=== PATIENT | female | born 1985 | race Caucasian/White ===

== ENCOUNTER 2017-03-18 06:28 | Inpatient (IN) | payer BC ==
[2017-03-16 12:00] LABS: BASOPHILS 0.5 % (0-2); EOSINOPHILS 1.9 % (0-7); HEMATOCRIT 37.4 % (36.0-48.0); HEMOGLOBIN 11.8 g/dL (12-16); IMMATURE GRANULOCYTES 0.2 % (0-5); LYMPHOCYTES 32.3 % (15-50); MCH 24.8 pg (26.0-34.0); MCHC 31.6 g/dL (31.0-37.0); MCV 78.7 fL (80.0-100.0); MEAN PLATELET VOLUME 8.8 fL (7.4-10.4); MONOCYTES 7.4 % (2-11); NEUTROPHILS 57.7 % (40-80); PLATELET COUNT 415 10x3/uL (130-400); RBC 4.75 10x6/uL (4.00-5.40); RDW 13.3 % (11.5-14.5); WBC 8.3 10x3/uL (4.8-10.8)
[2017-03-16 12:24] LABS: CALC OSMOLALITY 278 mosm/kg (275-300); CALCIUM 8.8 mg/dL (8.5-10.1); CARBON DIOXIDE 27.5 mmol/L (21.0-32.0); CHLORIDE - SERUM 106 mmol/L (98-107); CREATININE - SERUM 0.8 mg/dL (0.6-1.3); GLUCOSE 99 mg/dL (74-106); POTASSIUM - SERUM 3.9 mmol/L (3.5-5.1); SODIUM 141 mmol/L (136-145); UREA NITROGEN 6 mg/dL (7-18); eGFR NON AFRICAN AMERICAN 88 mL/min (90-120)
[~2017-03-18] VITALS: Ht 165.1 cm; Wt 106.4 kg
[2017-03-18] VITALS (13 sets, daily range): BP systolic 103–143; BP diastolic 56–82; Ht 165.1 cm; Wt 106.4 kg
[2017-03-18 06:14] LABS: HCG URINE NEGATIVE (NEGATIVE)
--- NOTE | 2017-03-18 10:19 | HP ---
PATIENT: CECIL RUDD MEDICAL RECORD: [id number] ACCOUNT: [id number] LOCATION:[facility] : 84 ADMISSION DATE: 03/18/17 HISTORY AND PHYSICAL EXAMINATION HISTORY OF PRESENT ILLNESS: This patient is a 31-year-old 3, para 3 white female with history of severe menorrhagia and dysmenorrhea precluding normal activities. She has a benign endometrial biopsy and ultrasound revealing a 10-cm uterus, normal-appearing ovaries and normal Pap smear. She has undergone an extensive workup including biopsy of the endometrium, cervical culture, CBC, clotting studies, and TSH. She desires hysterectomy for relief of symptoms. MEDICAL HISTORY: DRUG ALLERGIES: PENICILLIN. CURRENT MEDICATIONS: None. PREVIOUS SURGERIES: Tubal ligation, appendectomy and laparoscopy. FAMILY HISTORY: Noncontributory. REVIEW OF SYSTEMS: No chest pain, no dyspnea. Positive for very heavy menstrual cycles interfering with work and activities, very painful menstrual cycles. PHYSICAL EXAMINATION: VITAL SIGNS: Weight 234. BMI of 38.9, blood pressure 110/74. HEENT: Unremarkable. LUNGS: Clear. HEART: Regular rate and rhythm. ABDOMEN: Soft, nontender. Laparoscopic incisions are well healed. PELVIC: Current and deferred for anesthesia. EXTREMITIES: No cyanosis, clubbing or edema. NEUROLOGIC: Grossly intact. IMPRESSION: Moderately enlarged uterus, severe menorrhagia and dysmenorrhea. The patient desires hysterectomy. PLAN: Laparoscopically-assisted vaginal hysterectomy if possible. She understands the possibility of a total abdominal hysterectomy. She also understands the possibility of a bilateral salpingo-oophorectomy depending on findings at the time of surgery. I have answered all her questions and further discussed risks of surgery which include anesthesia, infection, bleeding and possibility of injury to other organs. Procedure is planned for March 18. TRANSINT:[id number] Voice Confirmation ID: [id number] DOCUMENT ID: [id number] HISTORY AND PHYSICAL [id number] CECIL RUDD BRENDA MD at 1019 CC: [id number] DICTATION DATE: 03/16/17 1714 [facility] ADMISSIONS COUNSELOR: 03/16/[address] [place], [place] [address] [place] [address]
[2017-03-19 00:05] VITALS: BP 128/75
[2017-03-19 04:52] VITALS: BP 118/68
[2017-03-19 07:30] VITALS: BP 112/68
[2017-03-19 07:32] LABS: HEMATOCRIT 30.7 % (36.0-48.0); HEMOGLOBIN 9.3 g/dL (12-16); MCH 24.3 pg (26.0-34.0); MCHC 30.3 g/dL (31.0-37.0); MCV 80.2 fL (80.0-100.0); MEAN PLATELET VOLUME 8.5 fL (7.4-10.4); RBC 3.83 10x6/uL (4.00-5.40); RDW 13.4 % (11.5-14.5)
--- NOTE | 2017-03-19 07:34 | OP ---
PATIENT NAME: CECIL RUDD MEDICAL RECORD: [id number] :84 LOCATION:[facility].1214 ADMISSION DATE:03/18/17 SURGEON: ISI GOMEZ MD DATE OF OPERATION: 03/18/2017 PREOPERATIVE DIAGNOSES: Severe menorrhagia, dysmenorrhea and myoma. POSTOPERATIVE DIAGNOSES: Severe menorrhagia, dysmenorrhea and myoma. PROCEDURES: Examination under anesthesia, total abdominal hysterectomy and bilateral salpingectomy. SURGEON: Isi Gomez MD. ANESTHESIA: General. FINDINGS: A 10-week size uterus with normal ovaries and tubes, status post ligation with Filshie clips. ESTIMATED BLOOD LOSS: 400 cc. COMPLICATIONS OF SURGERY: None. OPERATIVE NOTE: The patient was taken to the OR and under adequate general anesthesia, prepped and draped in the usual manner for abdominal procedures. The patient had undergone an examination under anesthesia, which revealed difficulty by vaginal or laparoscopic approach, an abdominal procedure was begun. After prepping and draping, a transverse incision was made in the lower abdomen that extended in a Pfannenstiel manner through subcutaneous tissue, fascia, dividing muscles in the midline. Peritoneum was then elevated and incised from the symphysis pubis to within 4 cm of the umbilicus, avoiding the bladder and abdominal organs. The round ligaments were identified on the right and left and ligated using #1 chromic sutures. The uteroovarian ligaments and fallopian tubes were then ligated using Duong clamps and #1 chromic sutures. A bladder flap was developed anteriorly using Metzenbaum scissors and blunt dissection. The uterine vessels were then ligated on the right and left using Duong clamps and #1 chromic suture. At this time, the uterine fundus was amputated from the uterine cervix in order to allow better access to the cervix. The cervix was then progressively ligated after clamping vessels on the right and left using #1 chromic suture. Vaginal angles were then clamped and the cervix excised. Vaginal apex closed with interrupted [id number] #1 chromic suture. Pelvis was copiously irrigated and suctioned. The tubes were then addressed and carefully dissected away from the ovaries and sent along with specimen. The pelvis was copiously irrigated and suctioned and hemostasis confirmed. Chester was applied to the vaginal apex. The fascial layer was then closed using a running noninterlocking #1 PDS loop suture. Skin incision reapproximated in 2 layers, first layer a running 2-0 plain gut suture and skin layer a subcuticular 2-0 plain gut suture. THE PATIENT IS ALLERGIC TO THE USUAL STERI-STRIP DRESSING; 4 x 4 gauze and ABD pad were placed across the incision and cloth tape was used to hold in position. The patient then went to the recovery area in good condition. Indigo carmine had been injected transvenously earlier in the case. There was no evidence of spillage into the peritoneal cavity. TRANSINT:[id number] Voice Confirmation ID: [id number] DOCUMENT ID: [id number] OPERATIVE REPORT [id number] CECIL RUDD BRENDA MD at 0734 CC: [id number] DICTATION DATE: 03/18/17 1034 SPRINKLER DRIVER: 03/18/17 1740 ADM IN [facility] [address] [id number]
[2017-03-19 19:10] VITALS: BP 129/72
[2017-03-20 00:20] VITALS: BP 135/75
[2017-03-20 04:20] VITALS: BP 131/71
[2017-03-20 08:00] VITALS: BP 118/78
[2017-03-20] MEDS ORDERED: IBUPROFEN600 MG PO (14:44)
[2017-03-20] MEDS ORDERED: MEPERIDINE HCL50 MG PO (14:44)
== END 2017-03-20 15:55 | disposition home or self-care (01) | DRG 743 ==
LOC: D.OPS 06:28 → D.PAN 07:30 → D.WS 10:26 → D.OPS 10:49 → D.WS 10:51
PROVIDERS: ADMIT Obstetrics & Gynecology
PROC: 0UB70ZZ Excision of Bilateral Fallopian Tubes, Open Approach (ICD-10-PCS; 2017-03-18)
PROC: 0UT90ZZ Resection of Uterus, Open Approach (ICD-10-PCS; principal; 2017-03-18 07:30)
PROC: 0UTC0ZZ Resection of Cervix, Open Approach (ICD-10-PCS; 2017-03-18 07:30)
DX: N92.0 Excessive and frequent menstruation with regular cycle (principal); N94.6 Dysmenorrhea, unspecified; D21.9 Benign neoplasm of connective and other soft tissue, unspecified

== ENCOUNTER 2018-03-13 22:04 | Emergency (ER) | payer BC ==
[2017-03-18 12:47] VITALS: BMI 39.0
[~2018-03-13 22:04] MED LIST: IBUPROFEN600 MG PO; MEPERIDINE HCL50 MG PO
== END 2018-03-13 23:23 | disposition home or self-care (01) ==
LOC: D.ER 22:04
DX: K02.9 Dental caries, unspecified (principal); K08.89 Other specified disorders of teeth and supporting structures